=== PATIENT | female | born 1980 | race American Indian/Alaskan Native ===

== ENCOUNTER 2020-06-20 14:44 | Emergency (ER) | payer SELFPAY ==
[2020-06-20 15:13] VITALS: BP 143/92
[2020-06-20] MEDS ORDERED: LIDOCAINE (1%) 10 MG/1 ML VIAL 20 ML MDV INFILTRATI ONE (15:38)
[2020-06-20] MEDS ORDERED: IBUPROFEN 800 MG TAB PO ONE (16:16)
--- NOTE | 2020-06-20 16:24 | Emergency Department Report ---
- General Chief Complaint: Wound/Laceration Stated Complaint: LT INDE/MIDDLE FINGER CUT Time Seen by Provider: 06/20/20 15:45 Source: patient Mode of arrival: Ambulatory Limitations: No Limitations - History of Present Illness Initial Comments: 40-year-old female states she was cutting her bushes with a hedge cutter she accidentally cut her left index and middle finger. Patient states that her tetanus is up-to-date. She has no past medical history bleeding is well controlled. She is in no acute distress -: Sudden (Just before arrival) Location: other (Left index and left middle finger) Place: home Context: accidental Associated Symptoms: pain Treatments Prior to Arrival: bandage - Related Data Previous Rx's Medication Instructions Recorded Last Taken Type Ibuprofen [Motrin] 600 mg PO Q8H PRN #20 tablet 06/20/20 Unknown Rx Allergies Allergy/AdvReac Type Severity Reaction Status Date / Time No Known Allergies Allergy Unverified 06/20/20 15:07 ED Review of Systems ROS: Stated complaint: LT INDE/MIDDLE FINGER CUT Other details as noted in HPI Comment: All other systems reviewed and negative Constitutional: no symptoms reported Eyes: as per HPI ENT: denies: dental pain, hearing loss Respiratory: denies: cough, shortness of breath, SOB with exertion Cardiovascular: denies: chest pain, palpitations Gastrointestinal: denies: abdominal pain, nausea, constipation Musculoskeletal: denies: back pain, joint swelling Neurological: denies: headache Psychiatric: denies: anxiety, auditory hallucinations ED Past Medical Hx - Past Medical History Previous Medical History?: No - Surgical History Additional Surgical History: left wrist - Social History Smoking Status: Never Smoker - Medications Home Medications: Home Medications Medication Instructions Recorded Confirmed Last Taken Type Ibuprofen [Motrin] 600 mg PO Q8H PRN #20 tablet 06/20/20 Unknown Rx ED Physical Exam - General Limitations: No Limitations General appearance: alert, in no apparent distress - Head Head exam: Present: atraumatic - Eye Eye exam: Present: normal appearance - ENT ENT exam: Present: normal exam - Neck Neck exam: Present: normal inspection - Respiratory Respiratory exam: Present: normal lung sounds bilaterally - Cardiovascular Cardiovascular Exam: Present: regular rate, normal heart sounds - Extremities Exam Extremities exam: Present: full ROM (Of her fingers), normal capillary refill, other (Left left index finger distal phalanx there is a 2 cm jagged wound, left middle finger at the medial phalanx 1 cm jagged wound) - Back Exam Back exam: Present: normal inspection - Neurological Exam Neurological exam: Present: alert, oriented X3 - Psychiatric Psychiatric exam: Present: normal affect - Skin Skin exam: Present: warm, dry, normal color ED Course Vital Signs 06/20/20 06/20/20 15:05 16:22 Temperature 98.2 F Pulse Rate 82 Respiratory 18 18 Rate Blood Pressure 143/92 O2 Sat by Pulse 100 Oximetry - Reevaluation(s) Reevaluation #1: 06/20/20 16:30 Tolerated suturing well - Laceration /Wound Repair Left Palm Finger Betadine Prep?: Yes Anesthesia: 1% Lidocaine Wound Debrided: minimal Suture Size/Type: 5:0, proline Number of Sutures: 4 (Left index finger) Layer Closure?: No Sterile Dressing Applied?: Yes Progress: Left index finger distal phalanx 2 cm jagged wound site irrigated with saline also cleansed with Betadine no foreign body found 1% lidocaine approximately 2 cc used to anesthetize the area 4 cm sutures 5-0 nylon applied patient tolerated well she has full range of motion of her fingers sensation intact cap refill 1 to 2 seconds Left middle finger medial phalanx with a 1 cm jagged wound site cleansed with saline and Betadine and anesthetized with approximately 1 cc of 1% lidocaine 2 sutures applied with 5-0 nylon patient tolerated well full range of motion of her finger sensation intact cap refill 1 to 2 seconds ,clean dry dressing applied to both fingers ED Medical Decision Making - Radiology Data Radiology results: report reviewed Left hand 3 views INDICATION: Finger laceration FINDINGS: Soft tissue injury with finger soft tissue laceration the distal index finger. There is some high dense material within the region of the laceration which may relate to laceration however clinical correlation to exclude foreign body. No acute fracture is seen. - Medical Decision Making 40-year-old female sustained laceration while cutting her her bushes with a hedge cutter's wound sutured patient tolerated well. Tetanus is up-to-date wound care instructions given. X-ray with no fracture or dislocation. Discharge with wound care instructions suture removal 7 to 10 days - Differential Diagnosis Laceration finger Critical Care Time: No Critical care attestation.: If time is entered above; I have spent that time in minutes in the direct care of this critically ill patient, excluding procedure time. ED Disposition Clinical Impression: Laceration of fingers without complication Qualifiers: Encounter type: initial encounter Qualified Code(s): S61.219A - Laceration without foreign body of unspecified finger without damage to nail, initial encounter Disposition: TO HOME OR SELFCARE Is pt being admited?: No Does the pt Need Aspirin: No Condition: Stable Instructions: Laceration Care, Adult, [id number], Sutured Wound Care, [id number] Additional Instructions: Keep wound clean and dry. Keep dressing in place for the next 24 hours. Then keep clean and dry. Apply dressing if there is a possibility for soiling follow-up with your primary care doctor for suture removal in 7 to 10 days. Take [id number] Advil or Tylenol as prescribed by package insert for pain. Prescriptions: Ibuprofen [Motrin] 600 mg PO Q8H PRN #20 tablet PRN Reason: Pain Referrals: EVELINA MCDONNELL MD [Staff Physician] - 3-5 Days Time of Disposition: 16:57
--- NOTE | 2020-06-20 16:55 | XRay Report ---
Left hand 3 views INDICATION: Finger laceration FINDINGS: Soft tissue injury with finger soft tissue laceration the distal index finger. There is jade e high dense material within the region of the laceration which may relate to laceration however clin ical correlation to exclude foreign body. No acute fracture is seen. Signer Name: Kyle Snow MD Signed: 06/20/2020 4:50 PM Workstation Name: [id number]
== END 2020-06-20 18:19 | disposition home or self-care (01) ==
LOC: ED 14:44
DX: S61.211A Laceration without foreign body of left index finger without damage to nail, initial encounter (principal); Z79.899 Other long term (current) drug therapy; W45.8XXA Other foreign body or object entering through skin, initial encounter; Y93.89 Activity, other specified; Y92.099 Unspecified place in other non-institutional residence as the place of occurrence of the external cause; Y99.8 Other external cause status